=== PATIENT | male | born 1980 | race African-American/Black ===

== ENCOUNTER → 2016-05-02 | Day surgery (SDC) | payer BC ==
--- NOTE | 2016-04-30 22:20 | PREOP HP ---
DATE OF SERVICE: HISTORY OF PRESENT ILLNESS: The patient has a history of more than 10 years of a right inguinal hernia, he reports for the last 3 years. This hernia has been getting worse including some intermittent cramping abdominal pain in the right upper quadrant. This pain has been exacerbated by heavy lifting at his work. The patient denies any nausea, vomiting, bowel or bladder changes at this time. PAST MEDICAL HISTORY: He has no past medical history. MEDICATIONS: Does not take any medications. ALLERGIES: He has no allergies to any medications. SOCIAL HISTORY: Positive for 1 pack of cigarettes per day smoking. He drinks alcohol occasionally, but does not get drunk and does not use recreational drugs. 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 FAMILY HISTORY: He does not have any relevant family history. PHYSICAL EXAMINATION: HEAD AND NECK: Grossly normal. HEART: Rate is regular at approximately 70 beats per minute, normal rhythm, no murmurs auscultated. LUNGS: Clear to auscultation bilaterally. ABDOMEN: He has a palpable right inguinal hernia, which extends down into the right scrotum. ASSESSMENT AND PLAN: Hernia repair surgery was discussed with the patient and he agrees to the risks and possible complications involved. The patient is not currently on any anticoagulant medication at this time. MARCO FRYE MD DR: SADIE/beau JOB#: [id number] / [id number] ABRAHAM
--- NOTE | 2016-05-01 15:02 | HP ---
ADMIT DATE: 05/02/2016 HISTORY OF PRESENT ILLNESS: The patient is seen because of right abdominal and groin pain. He has had this for a few months and it is getting worse. He has difficulty at work because of pain and discomfort. He therefore is referred because of this. PAST MEDICAL HISTORY: Normal childhood diseases. PAST SURGICAL HISTORY: He has only had tubes put in his ears as a child as surgery, no other surgery. ALLERGIES: He has no allergies. MEDICATIONS: He takes no medicine for any disease. SOCIAL HISTORY: The patient to be . He does not smoke, though he smoked up until about six months ago and drinks only socially, not enough to get inebriated. He states that lately he does not drink at all. There is no history of illegal use of drugs or medicines. FAMILY HISTORY: Basically noncontributory. PHYSICAL EXAMINATION: GENERAL: An alert male in no acute distress. HEENT: Head, eyes, ears, nose and throat were grossly normal. LUNGS: Clear bilaterally to auscultation. CARDIOVASCULAR: Rate of 73 beats per minute was regular. No murmurs, heaves, friction rubs or thrills were noted. ABDOMEN: Soft, no scars were noted. There was no tenderness and no organomegaly. In the lower abdomen and the right inguinal area, there was a mass which was tender. He did have no evidence of peritoneal irritation or acute abdomen. Bowel sounds were normal. The mass in the groin was on the right side and extended down into the scrotum. This was partially reduced, but could not be fully reduced because of pain. He does have flatus and no evidence of bowel obstruction. No urinary tract symptoms. RECTAL: Examination was not done. EXTREMITIES: Grossly normal. IMPRESSION: Incarcerated right inguinal hernia. MARCO FRYE MD DR: SADIE/beau JOB#: [id number] / [id number] ABRAHAM
[~2016-05-02] VITALS: Ht 170.2 cm; Wt 72.6 kg
[~2016-05-02] MED LIST: BUPIVACAINE-EPI 0.5%-1:200000 50 ML VIAL. ONE; CEFAZOLIN 1GM IVPB FOR OMNI 0 ML IV ONE; CEFAZOLIN 1GM IVPB FOR OMNI 50 ML IV ONE; DEXAMETHASONE SOD PHOS 20 MG/5 ML VIAL. ONE; DIPHENHYDRAMINE 50 MG/ML VIAL IV PRN; DOCU-27 PO; EPHEDRINE SULFATE 50 MG/ML VIAL. ONE; FENTANYL PF 100 MCG/2 ML VIAL. IV PRN; FENTANYL PF 250 MCG/5 ML VIAL. ONE; HYDR-2762 PO; HYDROCODONE/APAP 7.5/325MG TABLET. PO ONE; HYDROMORPHONE 2 MG/ML VIAL. IV PRN; IV RINGERS,LACTATED 1000ML 1,000 ML IV SCH; LIDOCAINE 1% 1 ML SYRINGE. ID PRN; LIDOCAINE 2% 100 MG/5 ML DISP.SYRIN. ONE; MEPERIDINE PF 25 MG/ML VIAL. IV PRN; MIDAZOLAM HCL 2 MG/2 ML VIAL. IV PRN; MIDAZOLAM HCL 2 MG/2 ML VIAL. ONE; MORPHINE SULFATE 4 MG/ML DISP.SYRIN. IV PRN; ONDANSETRON PF 4 MG/2 ML VIAL. ONE; PROCHLORPERAZINE 10 MG/2 ML VIAL. IV PRN; PROPOFOL 20 ML IV ONE; ROCURONIUM 50 MG/5 ML VIAL. ONE
[2016-05-02 08:13] LABS: BASO % 1 % (0-3); EOS % 1 % (0-3); HEMATOCRIT 45.7 % (39.0-53.0); HEMOGLOBIN 15.1 g/dL (13.0-17.5); LYMPH # 1.7 x10^3/uL (1.0-4.8); LYMPH % 29 % (24-48); MEAN CORPUSCULAR HEMOGLOBIN 30 pg (25-35); MEAN CORPUSCULAR HGB CONC 33 g/dL (31-37); MEAN CORPUSCULAR VOLUME 90 fL (79-100); MONO % 11 % (0-9); NEUT % 59 % (31-73); PLATELET COUNT 274 x10^3/uL (140-400); RED BLOOD COUNT 5.07 x10^6/uL (4.30-5.70); RED CELL DISTRIBUTION WIDTH 12.8 % (11.5-14.5); WHITE BLOOD COUNT 5.8 x10^3/uL (4.0-11.0)
[2016-05-02 08:21] LABS: CALCIUM 8.5 mg/dL (8.5-10.1); CREATININE 1.1 mg/dL (0.7-1.3); GFR 92.2; POTASSIUM 4.1 mmol/L (3.5-5.1)
[2016-05-02 08:25] LABS: ALBUMIN 4.2 g/dL (3.4-5.0); ALBUMIN/GLOBULIN RATIO 1.1 (1.0-1.7); TOTAL BILIRUBIN 0.6 mg/dL (0.2-1.0); TOTAL PROTEIN 7.9 g/dL (6.4-8.2)
[2016-05-02 08:30] LABS: PROTHROMBIN TIME PATIENT 12.7 SEC (11.7-14.0)
--- NOTE | 2016-05-02 08:41 | PDOC ---
SURGICAL PROGRESS NOTE Subjective no change in dictated H&P Vital Signs Vital Signs Date Time Temp Pulse Resp B/P Pulse Ox O2 Delivery O2 Flow Rate FiO2 05/02/16 08:00 98.6 73 18 126/84 99 Room Air 98.6 Labs Laboratory Tests Test 05/02/16 08:00 White Blood Count 5.8x10^3/uL (4.0-11.0) Red Blood Count 5.07x10^6/uL (4.30-5.70) Hemoglobin 15.1g/dL (13.0-17.5) Hematocrit 45.7% (39.0-53.0) Mean Corpuscular Volume 90fL (79-100) Mean Corpuscular Hemoglobin 30pg (25-35) Mean Corpuscular Hemoglobin Concent 33g/dL (31-37) Red Cell Distribution Width 12.8% (11.5-14.5) Platelet Count 274x10^3/uL (140-400) Neutrophils (%) (Auto) 59% (31-73) Lymphocytes (%) (Auto) 29% (24-48) Monocytes (%) (Auto) 11% (0-9) Eosinophils (%) (Auto) 1% (0-3) Basophils (%) (Auto) 1% (0-3) Neutrophils # (Auto) 3.4x10^3uL (1.8-7.7) Lymphocytes # (Auto) 1.7x10^3/uL (1.0-4.8) Monocytes # (Auto) 0.6x10^3/uL (0.0-1.1) Eosinophils # (Auto) 0.1x10^3/uL (0.0-0.7) Basophils # (Auto) 0.0x10^3/uL (0.0-0.2) Prothrombin Time 12.7SEC (11.7-14.0) Prothromb Time International Ratio 1.0 (0.8-1.1) Sodium Level 139mmol/L (136-145) Potassium Level 4.1mmol/L (3.5-5.1) Chloride Level 102mmol/L (98-107) Carbon Dioxide Level 31mmol/L (21-32) Anion Gap 6 (6-14) Blood Urea Nitrogen 15mg/dL (8-26) Creatinine 1.1mg/dL (0.7-1.3) Estimated GFR (Cockcroft-Gault) 92.2 BUN/Creatinine Ratio 14 (6-20) Glucose Level 105mg/dL (70-99) Calcium Level 8.5mg/dL (8.5-10.1) Total Bilirubin 0.6mg/dL (0.2-1.0) Aspartate Amino Transf (AST/SGOT) 24U/L (15-37) Alanine Aminotransferase (ALT/SGPT) 28U/L (16-63) Alkaline Phosphatase 46U/L (46-116) Total Protein 7.9g/dL (6.4-8.2) Albumin 4.2g/dL (3.4-5.0) Albumin/Globulin Ratio 1.1 (1.0-1.7) Laboratory Tests Test 05/02/16 08:00 White Blood Count 5.8x10^3/uL (4.0-11.0) Red Blood Count 5.07x10^6/uL (4.30-5.70) Hemoglobin 15.1g/dL (13.0-17.5) Hematocrit 45.7% (39.0-53.0) Mean Corpuscular Volume 90fL (79-100) Mean Corpuscular Hemoglobin 30pg (25-35) Mean Corpuscular Hemoglobin Concent 33g/dL (31-37) Red Cell Distribution Width 12.8% (11.5-14.5) Platelet Count 274x10^3/uL (140-400) Neutrophils (%) (Auto) 59% (31-73) Lymphocytes (%) (Auto) 29% (24-48) Monocytes (%) (Auto) 11% (0-9) Eosinophils (%) (Auto) 1% (0-3) Basophils (%) (Auto) 1% (0-3) Neutrophils # (Auto) 3.4x10^3uL (1.8-7.7) Lymphocytes # (Auto) 1.7x10^3/uL (1.0-4.8) Monocytes # (Auto) 0.6x10^3/uL (0.0-1.1) Eosinophils # (Auto) 0.1x10^3/uL (0.0-0.7) Basophils # (Auto) 0.0x10^3/uL (0.0-0.2) Prothrombin Time 12.7SEC (11.7-14.0) Prothromb Time International Ratio 1.0 (0.8-1.1) Sodium Level 139mmol/L (136-145) Potassium Level 4.1mmol/L (3.5-5.1) Chloride Level 102mmol/L (98-107) Carbon Dioxide Level 31mmol/L (21-32) Anion Gap 6 (6-14) Blood Urea Nitrogen 15mg/dL (8-26) Creatinine 1.1mg/dL (0.7-1.3) Estimated GFR (Cockcroft-Gault) 92.2 BUN/Creatinine Ratio 14 (6-20) Glucose Level 105mg/dL (70-99) Calcium Level 8.5mg/dL (8.5-10.1) Total Bilirubin 0.6mg/dL (0.2-1.0) Aspartate Amino Transf (AST/SGOT) 24U/L (15-37) Alanine Aminotransferase (ALT/SGPT) 28U/L (16-63) Alkaline Phosphatase 46U/L (46-116) Total Protein 7.9g/dL (6.4-8.2) Albumin 4.2g/dL (3.4-5.0) Albumin/Globulin Ratio 1.1 (1.0-1.7) MARCO FRYE MD May 02, 2016 08:41
--- NOTE | 2016-05-02 08:46 | PDOC ---
SURGICAL PROGRESS NOTE Subjective Operative report Surgeon.......................................... Gabe pre operative diagnosis..................... incarcerated right inguinal hernia post operative diagnosis....................Incarcerated right inguinal hernia procedure........................................repair incarcerated right inguinal hernia anesthesia........................................ general fluids................................................ see anesthesia note blood loss......................................... 10 cc drains placed...................................... none condition........................................... satisfactory Vital Signs Vital Signs Date Time Temp Pulse Resp B/P Pulse Ox O2 Delivery O2 Flow Rate FiO2 05/02/16 08:00 98.6 73 18 126/84 99 Room Air 98.6 Labs Laboratory Tests Test 05/02/16 08:00 White Blood Count 5.8x10^3/uL (4.0-11.0) Red Blood Count 5.07x10^6/uL (4.30-5.70) Hemoglobin 15.1g/dL (13.0-17.5) Hematocrit 45.7% (39.0-53.0) Mean Corpuscular Volume 90fL (79-100) Mean Corpuscular Hemoglobin 30pg (25-35) Mean Corpuscular Hemoglobin Concent 33g/dL (31-37) Red Cell Distribution Width 12.8% (11.5-14.5) Platelet Count 274x10^3/uL (140-400) Neutrophils (%) (Auto) 59% (31-73) Lymphocytes (%) (Auto) 29% (24-48) Monocytes (%) (Auto) 11% (0-9) Eosinophils (%) (Auto) 1% (0-3) Basophils (%) (Auto) 1% (0-3) Neutrophils # (Auto) 3.4x10^3uL (1.8-7.7) Lymphocytes # (Auto) 1.7x10^3/uL (1.0-4.8) Monocytes # (Auto) 0.6x10^3/uL (0.0-1.1) Eosinophils # (Auto) 0.1x10^3/uL (0.0-0.7) Basophils # (Auto) 0.0x10^3/uL (0.0-0.2) Prothrombin Time 12.7SEC (11.7-14.0) Prothromb Time International Ratio 1.0 (0.8-1.1) Sodium Level 139mmol/L (136-145) Potassium Level 4.1mmol/L (3.5-5.1) Chloride Level 102mmol/L (98-107) Carbon Dioxide Level 31mmol/L (21-32) Anion Gap 6 (6-14) Blood Urea Nitrogen 15mg/dL (8-26) Creatinine 1.1mg/dL (0.7-1.3) Estimated GFR (Cockcroft-Gault) 92.2 BUN/Creatinine Ratio 14 (6-20) Glucose Level 105mg/dL (70-99) Calcium Level 8.5mg/dL (8.5-10.1) Total Bilirubin 0.6mg/dL (0.2-1.0) Aspartate Amino Transf (AST/SGOT) 24U/L (15-37) Alanine Aminotransferase (ALT/SGPT) 28U/L (16-63) Alkaline Phosphatase 46U/L (46-116) Total Protein 7.9g/dL (6.4-8.2) Albumin 4.2g/dL (3.4-5.0) Albumin/Globulin Ratio 1.1 (1.0-1.7) Laboratory Tests Test 05/02/16 08:00 White Blood Count 5.8x10^3/uL (4.0-11.0) Red Blood Count 5.07x10^6/uL (4.30-5.70) Hemoglobin 15.1g/dL (13.0-17.5) Hematocrit 45.7% (39.0-53.0) Mean Corpuscular Volume 90fL (79-100) Mean Corpuscular Hemoglobin 30pg (25-35) Mean Corpuscular Hemoglobin Concent 33g/dL (31-37) Red Cell Distribution Width 12.8% (11.5-14.5) Platelet Count 274x10^3/uL (140-400) Neutrophils (%) (Auto) 59% (31-73) Lymphocytes (%) (Auto) 29% (24-48) Monocytes (%) (Auto) 11% (0-9) Eosinophils (%) (Auto) 1% (0-3) Basophils (%) (Auto) 1% (0-3) Neutrophils # (Auto) 3.4x10^3uL (1.8-7.7) Lymphocytes # (Auto) 1.7x10^3/uL (1.0-4.8) Monocytes # (Auto) 0.6x10^3/uL (0.0-1.1) Eosinophils # (Auto) 0.1x10^3/uL (0.0-0.7) Basophils # (Auto) 0.0x10^3/uL (0.0-0.2) Prothrombin Time 12.7SEC (11.7-14.0) Prothromb Time International Ratio 1.0 (0.8-1.1) Sodium Level 139mmol/L (136-145) Potassium Level 4.1mmol/L (3.5-5.1) Chloride Level 102mmol/L (98-107) Carbon Dioxide Level 31mmol/L (21-32) Anion Gap 6 (6-14) Blood Urea Nitrogen 15mg/dL (8-26) Creatinine 1.1mg/dL (0.7-1.3) Estimated GFR (Cockcroft-Gault) 92.2 BUN/Creatinine Ratio 14 (6-20) Glucose Level 105mg/dL (70-99) Calcium Level 8.5mg/dL (8.5-10.1) Total Bilirubin 0.6mg/dL (0.2-1.0) Aspartate Amino Transf (AST/SGOT) 24U/L (15-37) Alanine Aminotransferase (ALT/SGPT) 28U/L (16-63) Alkaline Phosphatase 46U/L (46-116) Total Protein 7.9g/dL (6.4-8.2) Albumin 4.2g/dL (3.4-5.0) Albumin/Globulin Ratio 1.1 (1.0-1.7) MARCO FRYE MD May 02, 2016 08:46
[2016-05-02] MEDS: FENTANYL PF 100 MCG/2 ML VIAL. IV PRN ×2 (13:10→13:20)
--- NOTE | 2016-05-02 13:51 | OP ---
DATE OF SURGERY: SURGEON: Miguel Frye MD PREOPERATIVE DIAGNOSIS: Right inguinal hernia when seen in the office, it was nonreducible. POSTOPERATIVE DIAGNOSIS: Right inguinal hernia when seen in the office, it was nonreducible. ANESTHESIA: General. PROCEDURE: Repair of very difficult right inguinal hernia. TECHNIQUE: The patient had had this hernia for about more than 10 years and as such finally got insurance and wanted to be done. We have made a small incision following the skin lines in the right groin and carried it down through the skin. We did this with a 15 blade. We then used cautery to go down to the external oblique aponeurosis, opened it in the direction of its fibers with a small knife and then placed the scissors under that to open it up to the external inguinal ring. We could get down to the ring. The patient had a large hernia and had had it so long, there was so much scaring, it was very, very difficult. As such, we used Metzenbaum scissors and just slowly dissected small bits until we got the hernia from the external oblique aponeurosis and cleared it up on either side. We then placed finger under the cord structures after we had divided a lot of scar tissue. We pulled this up with the quarter-inch Mihaela drain. He had a large hernia and large component to it, extending into the scrotum and we slowly just dissected it free, which took much, much more time than normal as we could not push the tissues away as it had scarred in so much. We used Metzenbaum scissors and did not enter the sac whatsoever or the peritoneal cavity. We slowly got it mobilized off the testicle and slowly just mobilized it up to the internal inguinal ring. There was a large huge sac that we slowly it. Once we got high, we could push the tissues away, but the dissection took at least an hour to clear the sac from the cord structures. The cord structures were not damaged and all was left intact. We then sutured 2 extra large PerFix plugs and put them in the sac where it had been inverted and then sutured it in place. One and two, we placed through the shelving edge of Poupart's ligament, the other to the pubic tubercle and more to the transversalis fascia. Normally we do not do this, but this was a large hernia and we did not want this to move. We sutured it in place on the fascia using 0 Prolene. The 0 Vicryl was used to place in the muscle tissue and the transversalis fascia. We then placed the around keyhole, around the cord structures. There was much tissue there as there was lot of this redundant cord structures which had been quite extensive from the hernia sac and had been dissected free. We placed the suture around the keyhole as in so that the cord structures would not be strangulated or tight. This was placed well down on the anterior and what would be the posterior floor. We then started at the pubic tubercle with two #0 Prolene sutures, taking one laterally taking the shelving edge of Poupart ligament well past the internal inguinal ring. Medially, we took the same 0 Prolene, but a different suture and had started at the pubic tubercle and ran this taking the transversalis fascia and carried it around, past the internal inguinal ring and then back around to Poupart ligament. These were tied separately. Marcaine 0.5% was injected in the surgical site and where the sutures were. We then saw no bleeding, all was in its normal location. We did not see the ilioinguinal nerve. The external oblique aponeurosis was approximated with 0 Prolene and we then injected after this had been done and tied. We injected the external oblique aponeurosis with 0.5% Marcaine with epinephrine. The procedure was now terminated as we began to close the skin. Subcutaneous was approximated and Linda's with 3-0 Vicryl, deep dermis and most superficial subcutaneous was approximated with 4-0 Vicryl and then the skin was closed using a subcuticular 5-0 Vicryl. The procedure was terminated as the Tegaderm dressing was applied. BLOOD LOSS: Around 25-30 mL. FLUIDS GIVEN: Can be obtained from the anesthesia sheet. DRAINS: No drains were used. CONDITION OF THE PATIENT: Satisfactory as he is returned to the recovery room. MIGUEL FRYE MD DR: SADIE/beau JOB#: [id number] / [id number] ABRAHAM
[2016-05-02 13:55] VITALS: BP 114/67
== END | disposition home or self-care (01) ==
LOC: SURG 07:34
PROVIDERS: ATTEND Specialist
DX: K40.30 Unilateral inguinal hernia, with obstruction, without gangrene, not specified as recurrent (principal); F10.99 Alcohol use, unspecified with unspecified alcohol-induced disorder; F17.200 Nicotine dependence, unspecified, uncomplicated; Z79.899 Other long term (current) drug therapy; Z79.01 Long term (current) use of anticoagulants
CPT/HCPCS: 36415; 49507; 80053; 84436; 84443; 84481; 85027; 85610; A4215; C1781; J0690; J1100; J2250; J2405; J2704; J3010; J7120; 84480

== ENCOUNTER 2016-07-23 18:06 | Emergency (ER) | payer BC ==
[~2016-07-23] VITALS: Ht 170.2 cm; Wt 76.2 kg
[~2016-07-23 18:06] MED LIST changes: -BUPIVACAINE-EPI 0.5%-1:200000 50 ML VIAL. ONE; -CEFAZOLIN 1GM IVPB FOR OMNI 0 ML IV ONE; -CEFAZOLIN 1GM IVPB FOR OMNI 50 ML IV ONE; -DEXAMETHASONE SOD PHOS 20 MG/5 ML VIAL. ONE; -DIPHENHYDRAMINE 50 MG/ML VIAL IV PRN; -EPHEDRINE SULFATE 50 MG/ML VIAL. ONE; -FENTANYL PF 100 MCG/2 ML VIAL. IV PRN; -FENTANYL PF 250 MCG/5 ML VIAL. ONE; -HYDROCODONE/APAP 7.5/325MG TABLET. PO ONE; -HYDROMORPHONE 2 MG/ML VIAL. IV PRN; -IV RINGERS,LACTATED 1000ML 1,000 ML IV SCH; -LIDOCAINE 1% 1 ML SYRINGE. ID PRN; -LIDOCAINE 2% 100 MG/5 ML DISP.SYRIN. ONE; -MEPERIDINE PF 25 MG/ML VIAL. IV PRN; -MIDAZOLAM HCL 2 MG/2 ML VIAL. IV PRN; -MIDAZOLAM HCL 2 MG/2 ML VIAL. ONE; -MORPHINE SULFATE 4 MG/ML DISP.SYRIN. IV PRN; -ONDANSETRON PF 4 MG/2 ML VIAL. ONE; -PROCHLORPERAZINE 10 MG/2 ML VIAL. IV PRN; -PROPOFOL 20 ML IV ONE; -ROCURONIUM 50 MG/5 ML VIAL. ONE
[2016-07-23 18:21] VITALS: BP 116/78
--- NOTE | 2016-07-23 19:00 | PHYS DOC ---
Past Medical History Past Medical History: No Pertinent History Past Surgical History: Other Additional Past Surgical Histo: hernia repair Alcohol Use: Occasionally Drug Use: None Adult General Chief Complaint Chief Complaint: Neck Pain HPI HPI Patient is a 35 year old female presents emergency department stating that he has a lump underneath his chin. He states that he has had this for the last 4 days. He states that since last night has gone a little larger. It does not create any difficulty with swallowing or any notes of airway. Patient states this just annoying. He has not taken any medications for the discomfort. He has not taken any Tylenol or ibuprofen. He does state he's had this once before and it lasted approximately 2 days and went away. Patient is concerned that he may have cancer as he does smoke quite a bit. Patient denies any weight loss. He does state however he has had a weight gain. Patient denies any cough, fever, congestion or sore throat. Review of Systems Review of Systems Constitutional: Denies fever or chills [] Eyes: Denies change in visual acuity, redness, or eye pain [] HENT: Denies nasal congestion or sore throat. C/o swelling and knot under his chin Respiratory: Denies cough or shortness of breath [] Cardiovascular: No additional information not addressed in HPI [] GI: Denies abdominal pain, nausea, vomiting, bloody stools or diarrhea [] : Denies dysuria or hematuria [] Musculoskeletal: Denies back pain or joint pain [] Integument: Denies rash or skin lesions [] Neurologic: Denies headache, focal weakness or sensory changes [] Allergies Allergies Allergies Coded Allergies Type Severity Reaction Last Updated Verified No Known Drug Allergies 05/02/16 No Physical Exam Physical Exam Constitutional: Well developed, well nourished, no acute distress, non-toxic appearance. [] HENT: Normocephalic, atraumatic, bilateral external ears normal, oropharynx moist, no oral exudates, nose normal. Bilateral tympanic membranes appear to be normal. Patient was noted to have postnasal drip with erythematous noted in the throat and mouth area. He does have a quarter sized area that is swollen under the chin area at the submental lymph nodes. Eyes: PERRLA, EOMI, conjunctiva normal, no discharge. [] Neck: Normal range of motion, no tenderness, supple, no stridor. [] Cardiovascular:Heart rate regular rhythm, no murmur [] Lungs & Thorax: Bilateral breath sounds clear to auscultation [] Skin: Warm, dry, no erythema, no rash. [] Back: No tenderness Extremities: No tenderness, no cyanosis, no clubbing, ROM intact, no edema. [] Neurologic: Alert and oriented X 3, normal motor function, normal sensory function, no focal deficits noted. [] Psychologic: Affect normal, judgement normal, mood normal. [] Current Patient Data Vital Signs Vital Signs Date Time Temp Pulse Resp B/P Pulse Ox O2 Delivery O2 Flow Rate FiO2 07/23/16 18:21 97.9 88 16 116/78 95 97.9 EKG EKG [] Radiology/Procedures Radiology/Procedures [] Course & Med Decision Making Course & Med Decision Making Pertinent Labs and Imaging studies reviewed. (See chart for details) Patient was encouraged to use Tylenol for pain and discomfort this will also help with some swelling. Also recommended him to stop smoking. For the postnasal drip of his recommended Zyrtec or Claritin. Patient does have an appointment August 01 with his primary care physician recommended that he keep the appointment. Patient will be discharged home in stable condition signs and symptoms to return back to emergency department as been provided. [] Dragon Disclaimer Dragon Disclaimer This electronic medical record was generated, in whole or in part, using a voice recognition dictation system. Departure Departure Impression: Primary Impression: Lymphadenopathy Disposition: HOME, SELF-CARE Condition: STABLE Referrals: TEE DE LA ROSA (PCP) Patient Instructions: Lymphangitis, Pediatric, Smoking Cessation Additional Instructions: Activity as tolerated. Stop smoking. Ibuprofen 800 mg every 8 hours with food stop taking few develop an upset stomach. You may use Zyrtec or Claritin to help with nasal drainage and discharge the postnasal drip area. Follow-up appointment which you have on August 01. Return back to emergency department sign symptoms of become worse. KAYA COOK APRN Jul 23, 2016 19:00
[2016-07-23] MEDS ORDERED: AMOX500C PO (19:12)
== END 2016-07-23 19:10 | disposition home or self-care (01) ==
LOC: ER 18:13
DX: R59.1 Generalized enlarged lymph nodes (principal); F17.200 Nicotine dependence, unspecified, uncomplicated
CPT/HCPCS: 99283

== ENCOUNTER 2018-08-07 18:50 | Emergency (ER) | payer BC, OTHER ==
[~2018-08-07] VITALS: Ht 170.2 cm; Wt 67.6 kg
[~2018-08-07 18:50] MED LIST changes: +AMOX500C PO; +DOCU-109 PO; -DOCU-27 PO; -HYDR-2762 PO; +HYDR-2765 PO
[2018-08-07 19:12] VITALS: BP 120/80
== END 2018-08-07 19:35 | disposition left against medical advice (07) ==
LOC: ER 18:50
DX: S01.512D Laceration without foreign body of oral cavity, subsequent encounter (principal); X58.XXXD Exposure to other specified factors, subsequent encounter

== ENCOUNTER 2018-12-29 13:57 | Emergency (ER) | payer OTHER ==
[~2018-12-29] VITALS: Ht 170.2 cm; Wt 71.7 kg
[2018-12-29 14:02] VITALS: BP 125/73
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
--- NOTE | 2018-12-29 15:02 | RAD ---
Three-view right foot study Clinical indications: Fall yesterday. Pain. FINDINGS: Surgical hardware is seen involving the first and second and third tarsal metatarsal joints. This may be related to surgical repair of an old Lisfranc injury. Alignment is normal. No osteolytic process is evident. No acute fracture or dislocation is seen. No periosteal reaction is evident. No plantar spur of the calcaneus is evident. IMPRESSION: No acute fracture. Electronically signed by: Luisito Horvath MD (12/29/2018 2:59 PM) [facility]
--- NOTE | 2018-12-29 15:23 | RAD ---
Exam: CT cervical spine without contrast, CT thoracic spine without contrast INDICATION: Fall TECHNIQUE: Sequential axial images through the cervical and thoracic spine obtained without IV contrast. Sagittal and coronal reformatted images were reconstructed from the axial data and reviewed. Comparisons: None FINDINGS: Cervical spine: Visualized intracranial structures are unremarkable. Vertebral body heights are well-maintained. There is straightening of the cervical spine which may be positional. Fracture to the cervical spine is not identified. No significant spondylotic change in the cervical spine. Visualized paraspinal soft tissues are unremarkable. Thoracic spine: Vertebral body heights are well-maintained. Straightening of the thoracic spine, which may be positional. Fractures of the thoracic spine is not identified. No significant spondylotic change in the thoracic spine. Visualized paraspinal soft tissues are unremarkable. IMPRESSION: 1. Negative CT C-spine for acute traumatic injury. 2. Negative CT T spine for acute traumatic injury. 3. Straightening of the cervical and thoracic spine, which is nonspecific and is likely positional. Exposure: One or more of the following in the visualized dose reduction techniques were utilized for this examination: 1. Automated exposure control 2. Adjustment of the MA and/or KV according to patient size 3. Use of iterative of reconstructive technique Electronically signed by: Alfredo Bedoya MD (12/29/2018 3:21 PM) [facility] [place] [id number]
--- NOTE | 2018-12-29 15:28 | RAD ---
Exam: CT lumbar spine without contrast INDICATION: Fall TECHNIQUE: Sequential axial images through the lumbar spine obtained without IV contrast. Sagittal and coronal reformatted images were reconstructed from the axial data and reviewed. Comparisons: CT abdomen and pelvis 01/21/2014 FINDINGS: Vertebral body heights and alignment are well-maintained. 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 No associated anterolisthesis. No acute fracture of the lumbar spine. L1-L2: Mild broad-based disc bulge and bilateral facet arthropathy without significant neural foraminal or spinal canal stenosis. L2-L3: Mild broad-based disc bulge, ligament flavum thickening and facet arthropathy without significant neural foraminal or spinal canal stenosis. L3-L4: Mild broad-based disc bulge, ligament flavum thickening and facet arthropathy without significant neural foraminal or spinal canal stenosis. L4-L5: Mild broad-based disc bulge, ligament flavum thickening facet arthropathy causing mild bilateral neural foraminal stenosis. L5-S1: Mild broad-based disc bulge without significant neural foraminal or spinal canal stenosis. Visualized paraspinal soft tissues are unremarkable. IMPRESSION: 1. Negative CT lumbar spine for acute traumatic injury. 2. Stable Bilateral pars interarticularis defect at L5 without anterolisthesis. 3. Mild degenerative changes described above. Exposure: One or more of the following in the visualized dose reduction techniques were utilized for this examination: 1. Automated exposure control 2. Adjustment of the MA and/or KV according to patient size 3. Use of iterative of reconstructive technique Electronically signed by: Alfredo Bedoya MD (12/29/2018 3:25 PM) [facility]
[2018-12-29] MEDS ORDERED: HYDR-2761 PO (15:57)
[2018-12-29 16:23] LABS: BILIRUBIN,URINE NEGATIVE (NEG); CLARITY,URINE CLEAR; COLOR,URINE YELLOW; NITRITE,URINE NEGATIVE (NEG); PROTEIN,URINE NEGATIVE (NEG-TRACE)
[2018-12-29 16:26] LABS: BACTERIA,URINE 0 /HPF (0-FEW); RBC,URINE 0 /HPF (0-2); WBC,URINE 0 /HPF (0-4)
== END 2018-12-29 16:30 | disposition home or self-care (01) ==
LOC: ER 13:57
DX: M79.671 Pain in right foot (principal); M54.5 Low back pain; M54.2 Cervicalgia; M54.6 Pain in thoracic spine; G89.11 Acute pain due to trauma; W13.2XXA Fall from, out of or through roof, initial encounter; Y93.89 Activity, other specified; Y92.89 Other specified places as the place of occurrence of the external cause; Y99.8 Other external cause status
CPT/HCPCS: 72125; 72128; 72131; 73630; 81001; 99285-25

== ENCOUNTER 2019-03-07 19:02 | Emergency (ER) | payer OTHER ==
[~2019-03-07] VITALS: Ht 170.2 cm; Wt 67.1 kg
[~2019-03-07 19:02] MED LIST changes: +HYDR-2761 PO
[2019-03-07 19:26] LABS: BASO % 1 % (0-3); EOS # 0.1 x10^3/uL (0.0-0.7); EOS % 1 % (0-3); HEMATOCRIT 42.5 % (39.0-53.0); HEMOGLOBIN 14.5 g/dL (13.0-17.5); LYMPH # 1.9 x10^3/uL (1.0-4.8); LYMPH % 25 % (24-48); MEAN CORPUSCULAR HEMOGLOBIN 31 pg (25-35); MEAN CORPUSCULAR HGB CONC 34 g/dL (31-37); MEAN CORPUSCULAR VOLUME 89 fL (79-100); MONO # 0.6 x10^3/uL (0.0-1.1); MONO % 8 % (0-9); NEUT # 5.1 x10^3/uL (1.8-7.7); NEUT % 66 % (31-73); PLATELET COUNT 286 x10^3/uL (140-400); RED BLOOD COUNT 4.75 x10^6/uL (4.30-5.70); RED CELL DISTRIBUTION WIDTH 13.2 % (11.5-14.5); WHITE BLOOD COUNT 7.7 x10^3/uL (4.0-11.0)
[2019-03-07 19:37] LABS: CALCIUM 9.1 mg/dL (8.5-10.1); CREATININE 1.2 mg/dL (0.7-1.3); POTASSIUM 3.5 mmol/L (3.5-5.1)
[2019-03-07 19:43] LABS: ALBUMIN 4.2 g/dL (3.4-5.0); ALBUMIN/GLOBULIN RATIO 1.1 (1.0-1.7); MAGNESIUM 2.3 mg/dL (1.8-2.4); TOTAL BILIRUBIN 0.4 mg/dL (0.2-1.0); TOTAL PROTEIN 8.2 g/dL (6.4-8.2)
--- NOTE | 2019-03-07 20:07 | RAD ---
Exam: Chest one view INDICATION: Palpitations TECHNIQUE: Frontal view of the chest Comparisons: None FINDINGS: The cardiomediastinal silhouette and pulmonary vessels are within normal limits. The lung and pleural spaces are clear. IMPRESSION: No acute cardiopulmonary process. Electronically signed by: Alfredo Bedoya MD (03/07/2019 8:04 PM) [facility]
[2019-03-07 20:10] VITALS: BP 113/70
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
--- NOTE | 2019-03-08 03:56 | EKG ---
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
== END 2019-03-07 20:22 | disposition home or self-care (01) ==
LOC: ER 19:02
DX: R00.2 Palpitations (principal)
CPT/HCPCS: 36415; 71045; 80053; 83735; 85025; 93005; 96374; 99285; J2060

== ENCOUNTER 2019-11-15 18:59 | Emergency (ER) | payer SELFPAY ==
[~2019-11-15] VITALS: Ht 170.2 cm; Wt 63.6 kg
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
--- NOTE | 2019-11-15 20:20 | RAD ---
EXAM: 1. 2 views right humerus 2. AP, lateral, radial head views right elbow 3. AP and lateral views right forearm DATE: 11/15/2019 7:28 PM INDICATION: Reason: PAIN / Spl. Instructions: / History: COMPARISON: No Prior FINDINGS: AC joint degenerative changes are seen with dorsal clavicular spurring. No acute fracture or dislocation. Humeral head is not appear to be high riding. No definite humeral, elbow or forearm fracture is seen. No elbow joint effusion. Coronoid process enthesopathy. IMPRESSION: No acute fracture or dislocation of the right humerus, elbow or forearm. Electronically signed by: Mitesh Fernandez MD (11/15/2019 8:17 PM) [facility]
[2019-11-15] MEDS ORDERED: IBUP-1007 PO (20:36)
[2019-11-15 20:59] VITALS: BP 129/87
== END 2019-11-15 21:17 | disposition home or self-care (01) ==
LOC: ER 18:59
DX: G83.21 Monoplegia of upper limb affecting right dominant side (principal); R53.1 Weakness; R60.0 Localized edema; M25.521 Pain in right elbow; R19.7 Diarrhea, unspecified; F17.200 Nicotine dependence, unspecified, uncomplicated; F10.10 Alcohol abuse, uncomplicated; F19.90 Other psychoactive substance use, unspecified, uncomplicated; Z98.890 Other specified postprocedural states
CPT/HCPCS: 29125; 73060; 73080; 73090; 99285

== ENCOUNTER 2020-12-06 01:17 | Emergency (ER) | payer SELFPAY ==
[~2020-12-06] VITALS: Ht 170.2 cm; Wt 72.7 kg
[~2020-12-06 01:17] MED LIST changes: +IBUP-1007 PO
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
--- NOTE | 2020-12-06 02:41 | RAD ---
STUDY: 1. CT head without contrast 2. CT maxillofacial without contrast 3. CT cervical spine without contrast INDICATION: Fall. COMPARISON: CT cervical spine 12/29/2018 TECHNIQUE: Axial CT imaging of the head, maxillofacial structures and cervical spine performed withou t the use of intravenous contrast. Sagittal and coronal reformats were obtained. One or more of the following individualized dose reduction techniques were utilized for this examinat ion: 1. Automated exposure control 2. Adjustment of the mA and/or kV according to patient size 3. Use of iterative reconstruction technique. FINDINGS: CT HEAD: No acute intracranial hemorrhage. No mass effect, midline shift or hydrocephalus. Garcia-white matter d ifferentiation is maintained. Intact calvarium. CT MAXILLOFACIAL: Mildly depressed nasal bone complex deformity. There is a small fracture fragment just to the right o f midline that is rotated but not significantly displaced. No additional facial bone fracture. Normal temporomandibular joint alignment. Symmetric positioning of the globes. No retrobulbar hematoma. Mild soft tissue prominence along the n ose. No acute abnormality seen at the deeper spaces of the neck. No hemorrhage within the paranasal s inuses. CT CERVICAL SPINE: No acute fracture or traumatic malalignment. The cervical central canal is narrowed on a developmental basis. Mild superimposed degenerative kaur es. Limited ability to determine the extent of stenosis. Mild odontogenic disease to include the first mandibular molar on the right. No paraspinous hematoma. Mild cystic change and scarring at the lung apices. IMPRESSION: CT HEAD: 1. No acute intracranial abnormality. CT MAXILLOFACIAL: 1. Mildly depressed nasal bone complex deformity. No significant fracture displacement. No facial shakir ne fracture seen elsewhere. CT CERVICAL SPINE: 1. No acute fracture or traumatic malalignment. 2. Narrowed cervical canal on a developmental basis on a background of mild degenerative changes. Th e study is not tailored to determine the extent of stenosis. Electronically signed by: RENATO POLK MD (12/06/2020 2:38 AM) [facility]
[2020-12-06 03:28] VITALS: BP 95/52
== END 2020-12-06 03:59 | disposition home or self-care (01) ==
LOC: ER 01:17
DX: S02.2XXA Fracture of nasal bones, initial encounter for closed fracture (principal); S09.90XA Unspecified injury of head, initial encounter; F10.229 Alcohol dependence with intoxication, unspecified; F17.200 Nicotine dependence, unspecified, uncomplicated; Y90.9 Presence of alcohol in blood, level not specified; W10.8XXA Fall (on) (from) other stairs and steps, initial encounter; Y93.01 Activity, walking, marching and hiking; Y92.89 Other specified places as the place of occurrence of the external cause; Y99.8 Other external cause status
CPT/HCPCS: 70450; 70486; 72125; 99285-25